=== PATIENT | female | born 1970 | race Caucasian/White ===

== ENCOUNTER → 2016-06-30 | Outpatient (CLI) | payer BC ==
--- NOTE | 2016-06-30 18:44 | DI ---
US ABDOMEN LIMITED,06/30/2016 8:23 AM: Clinical History: Right upper quadrant abdominal pain Previous Exam: December 11, 2011 Findings: Multiple views of the right upper quadrant are obtained, and demonstrate diffuse fatty infiltration o f the liver. The aorta is normal. The gallbladder is also normal with the gallbladder wall measuring 2 mm. The right kidney measures 11.2 cm in length without hydronephrosis nor nephrolithiasis. The common bile duct measures 4 mm. The pancreas is not well seen, but is grossly normal. Impression: Fatty infiltration of the liver otherwise unremarkable.
[2016-07-01 13:53] LABS: HCV AB SCREEN Reactive (Negative)
[2016-07-07 08:35] LABS: HCV RNA DETECT/QUANT UNDETECTED
== END ==
LOC: US 08:11
PROVIDERS: ATTEND Nurse Practitioner Family
DX: R10.11 Right upper quadrant pain (principal); R94.5 Abnormal results of liver function studies
CPT/HCPCS: 76705; 86803; 87522

== ENCOUNTER → 2016-07-06 | Outpatient (CLI) | payer BC | LOC: LAB 09:45 | PROVIDERS: ATTEND Nurse Practitioner Family | DX: R94.5 Abnormal results of liver function studies (principal) | CPT/HCPCS: 36415; 87522; 87902 ==